=== PATIENT | male | born 1980 | race Caucasian/White ===

== ENCOUNTER 2022-10-05 07:59 | Observation (INO) | payer BC ==
[2022-10-05] MEDS ORDERED: BABY ASPIRIN 81 MG CHEW PO ONE (08:03)
[2022-10-05] MEDS ORDERED: PROTONIX 40 MG IV IV ONE ×2 (08:10→08:17)
--- NOTE | 2022-10-05 08:19 | ERPHSYRPT ---
- History of Present Illness Time Seen by Provider: 10/05/22 08:02 Historian: patient Exam Limitations: no limitations Patient Subjective Stated Complaint: pt here chest pain to epigastric area off and on since morning, worse when lays down, states tylenol helps, Triage Nursing Assessment: pt alert, resp easy, chest clear, abd soft, face mask in place, no edema noted, Physician History: 42 years old fairly healthy male presented in the ER with chief complaint of intermittent substernal chest pain dull aching pressure and sensation moderate intensity for the last 3 days, aggravated with lying down and better with activity. Does report mild shortness of breath with that but no palpitations. Denies having fever chills or cough recently. Denies lower extremity swelling/long travel. Patient reported last for few minutes to hours for last 3 days but since last night it was lasting longer so he decided to come in. Currently rates 4/10 intensity. Timing/Duration: day(s) (3), intermittent, gradual onset, worse Activities at Onset: activity Quality: dullness, pressure Location: substernal Chest Pain Radiation: no radiation Severity of Pain-Max: moderate Severity of Pain-Current: mild Modifying Factors: Improves With: movement. Worsens With: lying down Associated Symptoms: shortness of breath, No cough, No hurts to breathe, No syncope Prior Chest Pain/Cardiac Workup: no prior chest pain Nitro Today/Relief: no nitro taken today Aspirin Treatment Today: no aspirin today Allergies/Adverse Reactions: No Known Drug Allergies Allergy (Unverified 10/05/22 08:00) Home Medications: No Reportable Medications [No Reported Medications] 10/05/22 [History] Hx Tetanus, Diphtheria Vaccination/Date Given: No Hx Influenza Vaccination/Date Given: No Hx Pneumococcal Vaccination/Date Given: No Immunizations Up to Date: Yes Travel Risk - International Travel Have you traveled outside of the country in past 3 weeks: No - Coronavirus Screening Are you exhibiting any of the following symptoms?: No - Vaccine Status Have you recieved a Covid-19 vaccination: Yes 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[employer]: [employer] - Vaccination Dates Date of 2cond Vaccination (if applicable): 2020 - Review of Systems Constitutional: No Symptoms Eyes: No Symptoms Ears, Nose, & Throat: No Symptoms Respiratory: Dyspnea Cardiac: Chest Pain Abdominal/Gastrointestinal: No Symptoms Genitourinary Symptoms: No Symptoms Musculoskeletal: No Symptoms Skin: No Symptoms Neurological: No Symptoms Psychological: No Symptoms Endocrine: No Symptoms Hematologic/Lymphatic: No Symptoms - Past Medical History Pertinent Past Medical History: No - Past Surgical History Past Surgical History: No - Social History Smoking Status: Never smoker Exposure to second hand smoke: No Drug Use: none Patient Lives Alone: No - Nursing Vital Signs Nursing Vital Signs: Initial Vital Signs Pulse Rate 101 H 10/05/22 08:15 Respiratory Rate 14 10/05/22 08:15 Blood Pressure 135/95 10/05/22 08:15 O2 Sat by Pulse Oximetry 99 10/05/22 08:15 Pain Scale Pain Intensity 2 - Physical Exam General Appearance: no apparent distress, alert Eye Exam: PERRL/EOMI Ears, Nose, Throat Exam: normal ENT inspection Neck Exam: normal inspection, full range of motion Respiratory Exam: normal breath sounds, lungs clear Cardiovascular Exam: regular rate/rhythm, normal heart sounds Gastrointestinal/Abdomen Exam: soft, normal bowel sounds, No tenderness Back Exam: normal inspection, normal range of motion Extremity Exam: normal inspection, normal range of motion Neurologic Exam: alert, oriented x 3, cooperative Skin Exam: normal color SpO2 Interpretation: normal SpO2: 96 O2 Delivery: Room Air - Course EKG Interpreted by Me: RATE ([id number]), Sinus Rhythm, NORMAL AXIS, NORMAL INTERVALS, Non-specific ST Changes Ordered Tests: Active Orders 24 hr Category Date Time Status Bedrest ROUTINE Activity 10/05/22 13:45 Active Up With Assistance ROUTINE Activity 10/05/22 13:45 Active Call Admit Doctor for Orders ON ADMISSION Care 10/05/22 13:45 Active [employer] STAT Care 10/05/22 08:03 Completed Code Status Order ROUTINE Care 10/05/22 13:45 Active EKG-ER Only STAT Care 10/05/22 08:03 Completed Fall Protocol Q1H Care 10/05/22 13:45 Active IV Care Q6H Care 10/05/22 13:45 Active IV Insertion STAT Care 10/05/22 08:[address] in Observation ROUTINE Care 10/05/22 13:45 Active Ian Hose, Apply ROUTINE Care 10/05/22 13:45 Active Weight,Daily 0600 Care 10/05/22 13:45 Active Heart-Healthy Diet Diet 10/05/22 Dinner Active CHEST 1 VIEW (PORTABLE) Stat Exams 10/05/22 08:03 Completed CBC W DIFF AM.LAB Lab 10/06/22 04:00 Ordered CBC W DIFF Stat Lab 10/05/22 08:15 Completed CMP AM.LAB Lab 10/06/22 04:00 Ordered CMP Stat Lab 10/05/22 08:15 Completed D-DIMER QUANTITATIVE Stat Lab 10/05/22 08:15 Completed NT PRO BNP Stat Lab 10/05/22 08:15 Completed TROPONIN Q4H Lab 10/05/22 08:15 Completed TROPONIN Q4H Lab 10/05/22 11:20 Completed TROPONIN Q4H Lab 10/05/22 16:05 Completed Transfer Order Routine Transfer 10/05/22 Completed Medication Summary Generic Name Dose Route Start Last Admin Trade Name Freq PRN Reason Stop Dose Admin Acetaminophen 650 mg 10/05/22 13:45 Acetaminophen 325 Mg Tablet PO 11/04/22 13:44 Q4H PRN PRN PAIN AND/OR FEVER Levofloxacin/Dextrose 500 mg in 100 mls @ 100 mls/hr 10/05/22 18:30 10/05/22 18:40 Levofloxacin 500mg/100ml D5w IV 11/04/22 18:29 100 mls/hr Q24H HAL Administration Morphine Sulfate 2 mg 10/05/22 13:45 Morphine Sulfate 2 Mg/Ml Inj IV 10/10/22 13:44 Q4H PRN PRN PAIN Ondansetron HCl 4 mg 10/05/22 13:45 Ondansetron Hcl 4 Mg/2 Ml Vial IV 11/04/22 13:44 Q6H PRN PRN NAUSEA/VOMITING Pantoprazole Sodium 40 mg 10/06/22 10:00 Pantoprazole 40 Mg Vial IV 11/05/22 09:59 Q24H10 HAL Discontinued Medications Generic Name Dose Route Start Last Admin Trade Name Freq PRN Reason Stop Dose Admin Acetaminophen 1,000 mg 10/05/22 10:41 10/05/22 10:42 Acetaminophen 500 Mg Tablet PO 10/05/22 10:42 1,000 mg STAT STA Administration Acetaminophen Confirm 10/05/22 10:40 Acetaminophen 500 Mg Tablet Administered 10/05/22 10:41 Dose 1,000 mg .ROUTE .STK-MED ONE Albuterol/Ipratropium 3 ml 10/05/22 13:45 Ipratropium/Albuterol Sulfate 3 Ml Ampul.Neb IH 11/04/22 13:44 Q4HPRN PRN SHORTNESS OF BREATH/WHEEZING Aspirin 324 mg 10/05/22 08:03 10/05/22 08:31 Aspirin 81 Mg Tab.Chew PO 10/05/22 08:04 324 mg STAT ONE Administration Pantoprazole Sodium 40 mg 10/05/22 08:10 10/05/22 08:30 Pantoprazole 40 Mg Vial IV 10/05/22 08:11 40 mg STAT ONE Administration Pantoprazole Sodium Confirm 10/05/22 08:17 Pantoprazole 40 Mg Vial Administered 10/05/22 08:18 Dose 40 mg IV .STK-MED ONE Lab/Rad Data: Laboratory Result Diagrams 10/05/22 08:15 10/05/22 08:15 Laboratory Results 10/05/22 10/05/22 10/05/22 Range/Units 11:20 11:20 08:15 WBC (4.0-10.5) x10^3/uL RBC (4.1-5.6) x10^6/uL Hgb (12.5-18.0) g/dL Hct (42-50) % MCV (78-100) fL MCH (26-32) pg MCHC (32-36) g/dL RDW (11.5-14.0) % Plt Count (150-450) x10^3/uL MPV (7.5-11.0) fL Gran % (36.0-66.0) % Immature Gran % (Auto) (0.00-0.4) % Nucleat RBC Rel Count (0.00-0.1) % Eos # (Auto) (0-0.5) x10^3/uL Immature Gran # (Auto) (0.00-0.03) x10^3u/L Absolute Lymphs (auto) (1.0-4.6) x10^3/uL Absolute Monos (auto) (0.0-1.3) x10^3/uL Absolute Nucleated RBC (0.00-0.01) x10^3u/L Lymphocytes % (24.0-44.0) % Monocytes % (0.0-12.0) % Eosinophils % (0.00-5.0) % Basophils % (0.0-0.4) % Absolute Granulocytes (1.4-6.9) x10^3/uL Basophils # (0-0.4) x10^3/uL D-Dimer (0.0-0.50) mg/L Sodium (137-145) mmol/L Potassium (3.5-5.1) mmol/L Chloride (98-107) mmol/L Carbon Dioxide (22-30) mmol/L Anion Gap (5-15) MEQ/L BUN (9-20) mg/dL Creatinine (0.66-1.25) mg/dL Estimated GFR ML/MIN Glucose (74-106) mg/dL Calcium (8.4-10.2) mg/dL Total Bilirubin (0.2-1.3) mg/dL AST (17-59) U/L ALT (0-50) U/L Alkaline Phosphatase (38-126) U/L Troponin I < 0.012 < 0.012 (0.000-0.034) ng/mL NT-Pro-B Natriuret Pep (0-450) pg/mL Serum Total Protein (6.3-8.2) g/dL Albumin (3.5-5.0) g/dL Influenza Type A Ag NEGATIVE (NEGATIVE) Influenza Type B Ag NEGATIVE (NEGATIVE) RSV (PCR) NEGATIVE (Negative) SARS-CoV-2 (PCR) NEGATIVE (NEGATIVE) 10/05/22 10/05/22 10/05/22 Range/Units 08:15 08:15 08:15 WBC 12.8 H (4.0-10.5) x10^3/uL RBC 5.31 (4.1-5.6) x10^6/uL Hgb 15.8 (12.5-18.0) g/dL Hct 47.1 (42-50) % MCV 88.7 (78-100) fL MCH 29.8 (26-32) pg MCHC 33.5 (32-36) g/dL RDW 11.9 (11.5-14.0) % Plt Count 264 (150-450) x10^3/uL MPV 11.1 H (7.5-11.0) fL Gran % 74.8 H (36.0-66.0) % Immature Gran % (Auto) 0.2 (0.00-0.4) % Nucleat RBC Rel Count 0.0 (0.00-0.1) % Eos # (Auto) 0.01 (0-0.5) x10^3/uL Immature Gran # (Auto) 0.03 (0.00-0.03) x10^3u/L Absolute Lymphs (auto) 1.83 (1.0-4.6) x10^3/uL Absolute Monos (auto) 1.32 H (0.0-1.3) x10^3/uL Absolute Nucleated RBC 0.00 (0.00-0.01) x10^3u/L Lymphocytes % 14.3 L (24.0-44.0) % Monocytes % 10.3 (0.0-12.0) % Eosinophils % 0.1 (0.00-5.0) % Basophils % 0.3 (0.0-0.4) % Absolute Granulocytes 9.59 H (1.4-6.9) x10^3/uL Basophils # 0.04 (0-0.4) x10^3/uL D-Dimer 0.22 (0.0-0.50) mg/L Sodium 138 (137-145) mmol/L Potassium 4.1 (3.5-5.1) mmol/L Chloride 105 (98-107) mmol/L Carbon Dioxide 25 (22-30) mmol/L Anion Gap 12.2 (5-15) MEQ/L BUN 12 (9-20) mg/dL Creatinine 0.79 (0.66-1.25) mg/dL Estimated GFR > 60.0 ML/MIN Glucose 113 H (74-106) mg/dL Calcium 9.3 (8.4-10.2) mg/dL Total Bilirubin 1.40 H (0.2-1.3) mg/dL AST 26 (17-59) U/L ALT 31 (0-50) U/L Alkaline Phosphatase 70 (38-126) U/L Troponin I (0.000-0.034) ng/mL NT-Pro-B Natriuret Pep 54.0 (0-450) pg/mL Serum Total Protein 8.5 H (6.3-8.2) g/dL Albumin 4.8 (3.5-5.0) g/dL Influenza Type A Ag (NEGATIVE) Influenza Type B Ag (NEGATIVE) RSV (PCR) (Negative) SARS-CoV-2 (PCR) (NEGATIVE) - Progress Progress: improved Air Movement: good Progress Note: 10/05/22 13:01 42 years old is evaluated for intermittent chest pain for the last 3 days. Initial EKG showed some questionable ST elevation in inferior leads, I have shared EKG with Dr. Hay at [facility] we do not think patient has STEMI. Given Tylenol and aspirin as patient does not want any stronger pain medication and feeling better on reevaluation. Negative troponins. Chest x-ray negative for any acute cardiopulmonary findings. Discussed with Dr. Frank and patient is being admitted for observation. Blood Culture(s) Obtained: No Antibiotics given: No Discussed with : Sanket Will see patient in: hospital (observation) Counseled pt/family regarding: lab results, diagnosis, rad results - Departure Departure Disposition: Home Clinical Impression: Chest pain, rule out acute myocardial infarction Condition: Stable Critical Care Time: No
[2022-10-05 08:29] LABS: Absolute Neutrophil Ct (ANC) 9.59 x10^3/uL (1.4-6.9); Basophil (Absolute #) 0.04 x10^3/uL (0-0.4); Eosinophil % 0.1 % (0.00-5.0); Eosinophil (Absolute #) 0.01 x10^3/uL (0-0.5); Hematocrit 47.1 % (42-50); Hemoglobin 15.8 g/dL (12.5-18.0); Lymphocyte (Absolute #) 1.83 x10^3/uL (1.0-4.6); Lymphocytes % 14.3 % (24.0-44.0); Mean Cell Volume 88.7 fL (78-100); Mean Corpuscular Hemoglobin 29.8 pg (26-32); Mean Corpuscular Hgb Concent. 33.5 g/dL (32-36); Mean Platelet Volume 11.1 fL (7.5-11.0); Monocyte (Absolute #) 1.32 x10^3/uL (0.0-1.3); Monocytes % 10.3 % (0.0-12.0); Neutrophil % 74.8 % (36.0-66.0); Platelet Count 264 x10^3/uL (150-450); Red Blood Count 5.31 x10^6/uL (4.1-5.6); Red Cell Distribution Width 11.9 % (11.5-14.0); White Blood Count 12.8 x10^3/uL (4.0-10.5)
[2022-10-05 08:48] LABS: ALBUMIN 4.8 g/dL (3.5-5.0); ALKALINE PHOSPHATASE 70 U/L (38-126); ANION GAP 12.2 MEQ/L (5-15); BLOOD UREA NITROGEN 12 mg/dL (9-20); CHLORIDE 105 mmol/L (98-107); Calcium 9.3 mg/dL (8.4-10.2); Carbon Dioxide 25 mmol/L (22-30); Creatinine 1 0.79 mg/dL (0.66-1.25); EST GLOMERULAR FILTRATION RATE > 60.0 ML/MIN; Glucose 113 mg/dL (74-106); Potassium 4.1 mmol/L (3.5-5.1); SGOT/AST 26 U/L (17-59); SGPT/ALT 31 U/L (0-50); SODIUM 138 mmol/L (137-145); Total Protein 8.5 g/dL (6.3-8.2)
[2022-10-05] MEDS ORDERED: TYLENOL EXTRA STRENGTH 500 MG ONE (10:40)
[2022-10-05] MEDS ORDERED: TYLENOL EXTRA STRENGTH 500 MG PO STA (10:41)
[2022-10-05 12:12] LABS: INFLUENZA A NEGATIVE (NEGATIVE); INFLUENZA B NEGATIVE (NEGATIVE); RESPIRATORY SYNCTIAL VIRUS NEGATIVE (Negative); SARS-CoV-2 Xpert Express NEGATIVE (NEGATIVE)
[2022-10-05] MEDS ORDERED: Zofran 4 MG/2 ML VIAL IV PRN (13:45)
[2022-10-05] MEDS ORDERED: MORPHINE SULFATE 2 MG INJ IV PRN (13:45)
[2022-10-05] MEDS ORDERED: TYLENOL 325 MG PO PRN (13:45)
[2022-10-05] MEDS ORDERED: DUONEB 0.5-3 MG/3 ml Neb IH PRN (13:45)
--- NOTE | 2022-10-05 17:46 | XRAY ---
Indication: Chest pain. Comparison: None Portable chest demonstrates bibasilar subsegmental atelectasis/scarring. Remaining heart, upper lungs, and bony thorax unremarkable. Comment: Preliminary interpretation made by [facility]. No critical discrepancy.
[2022-10-05] MEDS ORDERED: Levofloxacin 500MG/100ML D5W 500 MG/100 ML BAG IV SCH (18:30)
[2022-10-06 06:39] LABS: Absolute Neutrophil Ct (ANC) 5.94 x10^3/uL (1.4-6.9); Basophil (Absolute #) 0.03 x10^3/uL (0-0.4); Eosinophil % 0.3 % (0.00-5.0); Eosinophil (Absolute #) 0.03 x10^3/uL (0-0.5); Hematocrit 42.3 % (42-50); Hemoglobin 14.3 g/dL (12.5-18.0); Lymphocyte (Absolute #) 2.18 x10^3/uL (1.0-4.6); Mean Cell Volume 88.7 fL (78-100); Mean Corpuscular Hgb Concent. 33.8 g/dL (32-36); Mean Platelet Volume 11.2 fL (7.5-11.0); Monocyte (Absolute #) 1.28 x10^3/uL (0.0-1.3); Monocytes % 13.5 % (0.0-12.0); Neutrophil % 62.7 % (36.0-66.0); Platelet Count 233 x10^3/uL (150-450); Red Blood Count 4.77 x10^6/uL (4.1-5.6); White Blood Count 9.5 x10^3/uL (4.0-10.5)
[2022-10-06 07:04] LABS: ALKALINE PHOSPHATASE 56 U/L (38-126); BLOOD UREA NITROGEN 11 mg/dL (9-20); CHLORIDE 104 mmol/L (98-107); Calcium 8.9 mg/dL (8.4-10.2); Carbon Dioxide 26 mmol/L (22-30); EST GLOMERULAR FILTRATION RATE > 60.0 ML/MIN; Glucose 99 mg/dL (74-106); Potassium 3.9 mmol/L (3.5-5.1); SGOT/AST 17 U/L (17-59); SGPT/ALT 23 U/L (0-50); SODIUM 137 mmol/L (137-145); Total Protein 7.4 g/dL (6.3-8.2)
[2022-10-06 07:12] VITALS: BP 120/79; PULSE 97; O2SAT 92
[2022-10-06] MEDS ORDERED: PROTONIX 40 MG IV IV SCH (10:00)
[2022-10-06] MEDS ORDERED: Levofloxacin 500MG/100ML D5W 500 MG/100 ML BAG IV SCH (10:00)
== END 2022-10-06 09:30 | disposition home or self-care (01) ==
LOC: ED 07:59 → MED SURG 13:40
PROVIDERS: ADMIT Family Medicine; ATTEND General Practice
DX: R07.9 Chest pain, unspecified (principal); Z20.828 Contact with and (suspected) exposure to other viral communicable diseases
CPT/HCPCS: 0241U; 36000; 36415; 71045; 80053; 83880; 84145; 84484; 85025; 85379; 87040; 93005; 93041; 93268; 96374; 99285; G0378; J1956; A9270-GY